=== PATIENT | female | born 1990 ===

== ENCOUNTER 2017-08-21 11:42 | Emergency (ER) | payer MEDICAID ==
[~2017-08-21] VITALS: Ht 167.6 cm; Wt 58.1 kg
[2017-08-21 12:06] VITALS: BP 120/70
[2017-08-21 12:44] LABS: Urine Bacteria NONE SEEN /hpf (None Seen); Urine Blood Negative /uL (Negative); Urine Specific Gravity 1.003 (1.001-1.035); Urine WBC 2 /hpf (0 - 5)
[2017-08-21] MEDS ORDERED: LIDOCAINE VISCOUS 2% 15ML UD PO ONE (13:15)
[2017-08-21] MEDS ORDERED: DONNATAL 5ml ORAL Elix (BELLADONNA ALK-PHENOBARB) PO ONE (13:15)
[2017-08-21] MEDS ORDERED: ALUM & MAG HYDROX-SIMETH LIQ(MAALOX) 30 ML PO ONE (13:15)
[2017-08-21 13:22] LABS: Basophils # (auto) 0.1 uL; Eosinophils # (auto) 0.1 uL; Hemoglobin 12.3 g/dL (12.2-16.2); Mean Corpuscular Hemoglobin 26.6 pg (28.0-32.0); Neutrophils # (auto) 3.2 uL; Platelet Count (auto) 321 10^3/uL (140-450)
[2017-08-21 13:24] LABS: Basophils % (auto) 1.2 % (0.0-2.0); Eosinophils % (auto) 2.2 % (0.0-7.0); Hematocrit 37.7 % (36.0-46.0); Lymphocytes % (auto) 34.8 % (10.0-50.0); Mean Corpuscular Hgb Conc. 32.7 g/dL (32.0-36.0); Mean Corpuscular Volume 81.5 fL (80.0-100.0); Monocytes # (auto) 0.4 uL; Monocytes % (auto) 7.6 % (0.0-12.0); Neutrophils % (auto) 54.2 % (37.0-80.0); Red Blood Cells 4.62 10^6/uL (4.0-5.20); Red Cell Distribution Width 14.1 % (11.8-14.3); White Blood Cell 5.9 10^3/uL (4.4-10.8)
[2017-08-21 13:46] LABS: Albumin 4.8 g/dL (3.4-5.0); BUN/Creatinine Ratio 14.5; Calcium 9.6 mg/dL (8.5-10.1); Potassium 4.3 mmol/L (3.5-5.1)
[2017-08-21 13:48] LABS: Total Protein 8.3 g/dL (6.4-8.2)
== END 2017-08-21 15:25 | disposition home or self-care (01) ==
LOC: ER 11:42
DX: K29.70 Gastritis, unspecified, without bleeding (principal)
CPT/HCPCS: 36415; 74176; 80053; 81001; 81025; 85025

== ENCOUNTER 2019-06-13 11:49 | Inpatient (IN) | payer MEDICAID ==
[~2019-06-13] VITALS: Ht 167.6 cm; Wt 63.0 kg
[2019-06-13] MEDS ORDERED: LACT. RINGERS/OXYTOCIN 20UNITS 1,000 ML IV SCH (12:32)
[2019-06-13] MEDS ORDERED: PHISODERM TOP SOLN 240ML BTL TOP PRN (12:45)
[2019-06-13] MEDS ORDERED: LIDOCAINE 2%HCL (LOCAL ANESTH.) INJ 20ML MDV ID PRN (12:45)
[2019-06-13] MEDS ORDERED: WITCH HAZEL-GLYCERIN PAD TOP PRN (12:45)
[2019-06-13] MEDS ORDERED: NALBUPHINE HCL 10 MG/1ml INJECTION IV PRN (12:45)
[2019-06-13] MEDS ORDERED: DERMOPLAST 60ML BOTTLE TOP PRN (12:45)
[2019-06-13 13:22] LABS: Basophils # (auto) 0 uL; Basophils % (auto) 0.4 % (0.0-2.0); Eosinophils # (auto) 0.1 uL; Hematocrit 40.8 % (36.0-46.0); Hemoglobin 13.7 g/dL (12.2-16.2); Lymphocytes # (auto) 1.5 uL; Lymphocytes % (auto) 18.4 % (10.0-50.0); Mean Corpuscular Hemoglobin 30.1 pg (28.0-32.0); Mean Corpuscular Hgb Conc. 33.7 g/dL (32.0-36.0); Mean Corpuscular Volume 89.3 fL (80.0-100.0); Monocytes # (auto) 0.5 uL; Monocytes % (auto) 5.6 % (0.0-12.0); Neutrophils % (auto) 74.6 % (37.0-80.0); Nucleated Red Blood Cells % 0.1 %; Platelet Count (auto) 170 10^3/uL (140-450); Red Blood Cells 4.57 10^6/uL (4.0-5.20); Red Cell Distribution Width 13.8 % (11.8-14.3)
[2019-06-13 13:30] LABS: Urine Bacteria FEW /hpf (None Seen); Urine Blood Negative /uL (Negative); Urine Mucus FEW (None Seen); Urine Specific Gravity 1.012 (1.001-1.035); Urine WBC 6 /hpf (0 - 5)
[2019-06-13 13:43] LABS: Albumin 3.2 g/dL (3.4-5.0); BUN/Creatinine Ratio 9.6; Potassium 3.6 mmol/L (3.5-5.1); Uric Acid 4.5 mg/dL (2.6-6.0)
[2019-06-13 13:44] LABS: Alcohol, Urine < 3.0 mg/dL (0-5); Amphetamine Screen, Urine NEGATIVE (NEGATIVE); Barbiturate Scree,Urine NEGATIVE (NEGATIVE); Benzodiazephine Screen, Urine NEGATIVE (NEGATIVE); Cannabinoid Screen, Urine NEGATIVE (NEGATIVE); Cocaine Screen, Urine NEGATIVE (NEGATIVE); Opiate Scree,Urine NEGATIVE (NEGATIVE); Phencyclidine Screen, Urine NEGATIVE (NEGATIVE)
[2019-06-13 13:46] LABS: Bilirubin, Total 0.7 mg/dL (0.2-1.0); Total Protein 7.6 g/dL (6.4-8.2)
[2019-06-13 14:27] LABS: INR < 0.93 (0.9-1.15); Partial Thromboplastin Time 26.8 sec (23.64-32.05)
[2019-06-13 14:28] LABS: Fibrinogen 546 mg/dL (177-375)
[2019-06-13] MEDS: LACTATED RINGER'S 1,000 ML IV SCH ×3 (15:10→23:27)
[2019-06-13] MEDS: ACETAMINOPHEN 325 MG TAB PO PRN (16:24)
[2019-06-13] MEDS: NALBUPHINE HCL 10 MG/1ml INJECTION IV PRN (22:55)
[2019-06-13] MEDS: PROMETHAZINE HCL 25 MG/ML 1ML IV PRN (22:55)
[2019-06-14] MEDS ORDERED: LACT. RINGERS/OXYTOCIN 20UNITS 1,000 ML IV SCH ×2 (02:55→07:25)
[2019-06-14] MEDS ORDERED: TERBUTALINE SULFATE 1 MG/ML 1ML VIAL SC ONE (03:00)
[2019-06-14] MEDS ORDERED: PREN-153 OR (03:54)
[2019-06-14 04:06] LABS: RPR Non Reactive (Non Reactive)
[2019-06-14] MEDS: NALBUPHINE HCL 10 MG/1ml INJECTION IV PRN (04:57)
[2019-06-14] MEDS: PROMETHAZINE HCL 25 MG/ML 1ML IV PRN (04:57)
[2019-06-14] MEDS ORDERED: ONDANSETRON HCL 4 MG/2 ML VIAL IV PRN (06:30)
--- NOTE | 2019-06-14 06:30 | NUR ---
Report received from Jeyson Katz RN on demise.
--- NOTE | 2019-06-14 06:35 | NUR ---
[facility] CALLED INFO GIVEN SPOKE TO KAUSHAL AND CASE NUMBER RECEIVED FROM KAUSHAL [id number]
--- NOTE | 2019-06-14 07:30 | NUR ---
Ambulation: Patient OOB with standby assistance by RN. Patient ambulated to bathroom with steady gait. Patient able to void 800 cc without difficulty. Nikkie care teaching provided with returned demonstration by patient. Clean gown provided and bed linen changed. Patient ambulated back to bed with steady gait and no distress noted.
--- NOTE | 2019-06-14 08:30 | NUR ---
SPOKE TO JERI AT [facility]. INFO GIVEN, QUESTIONS AND CONCERNS ANSWERED.
--- NOTE | 2019-06-14 09:33 | NUR ---
RECEIVED CALL FROM [facility] OPERATOR'S SPOKE TO SINA SOLO CASE NUMBER GIVEN [phone], BODY RELEASED TO [facility] OR [facility] PER SINA.
--- NOTE | 2019-06-14 12:20 | NUR ---
MORTUARY AT BEDSIDE. TERESA BROWN FROM MORTUARY HERE TO [employer] OPERATOR [employer] TO TRANSPORT TO MORTUARY. RELEASE OF REMAINS SIGNED BY THE PATIENT. [facility] TRANSPORTED TO MORTUARY.
--- NOTE | 2019-06-14 14:30 | NUR ---
[facility] CALLED STATES SCREENING RESULTS ARE POSITIVE AND THEY NEED TO SEND OUT LAB TO CONFIRM IF SHE NEEDS MORE THAN ONE RHOGAM. DR ALCALA CALLED IN REGARDS POSITIVE SCREENING PER DR ALCALA GIVE PT ONE RHOGAM. ORDERS CARRIED OUT.
[2019-06-14 15:30] VITALS: BP 127/79
[2019-06-14] MEDS: IBUPROFEN 600 MG TAB PO PRN ×3 (15:54→20:30)
--- NOTE | 2019-06-14 18:59 | NUR ---
IV removal IV DC'd with sterile technique, catheter fully intact. Pressure dressing applied to site. Patient tolerated procedure well.
[2019-06-14 19:20] VITALS: BP 98/50
[2019-06-14] MEDS: DOCUSATE SOD 100 MG CAP PO SCH (22:08)
[2019-06-14 22:37] VITALS: BP 101/55
[2019-06-15 03:27] VITALS: BP 110/56
[2019-06-15] MEDS: ACETAMINOPHEN 325 MG TAB PO PRN (05:41)
[2019-06-15 07:25] VITALS: BP 110/67
--- NOTE | 2019-06-15 08:14 | NUR ---
DR. ALCALA AT PT BEDSIDE FOR PT ASSESSMENT. DR. ALCALA NOTIFIED PTS RIGHT EAR HAS BEEN HURTING HER SINCE LAST NIGHT. DR. ALCALA ASSESSED PTS EAR. ORDERS RECEIVED FROM DR. ALCALA TO DISCHARGE PT HOME AND PRESCRIPTION FOR A Z-PACK WAS WRITTEN FOR PATIENT. WILL PREPARE PT FOR DISCHARGE.
--- NOTE | 2019-06-15 08:55 | NUR ---
NEEDLEWORKER PAGED NEEDLEWORKER REGARDING CONSULT. AWAITING CALL BACK.
--- NOTE | 2019-06-15 08:55 | NUR ---
COMSEC MANAGER ANTONELLA PRYOR FROM [employer] MA[employer] CALLED BACK AND STATED PT CLEARED FOR DISCHARGE. Addendum: 06/15/19 at 1212 by Janay Garcia RN [id number] BRI CALLED BACK
[2019-06-15] MEDS: DOCUSATE SOD 100 MG CAP PO SCH (10:21)
[2019-06-15] MEDS: IBUPROFEN 600 MG TAB PO PRN (10:22)
--- NOTE | 2019-06-15 10:28 | NUR ---
Discharge: Discharge instructions given as ordered. Pt encouraged to follow up with PRODUCT SAFETY LEAD as instructed. All questions and concerns addressed. Patient verbalized understanding. Medication reconciliation completed and copy given to patient. Patient encouraged to prepare to depart unit.
--- NOTE | 2019-06-15 10:29 | NUR ---
NOTIFIED DR. ALCALA PT WOULD LIKE TO GO HOME WITH A PRESCRIPTION FOR MOTRIN. ORDERS RECEIVED FROM DR. ALCALA FOR MOTRIN 600MG PO QID WITH MEALS PRN, #60 NO REFILLS. READ BACK AND VERIFIED ORDERS. WILL CARRY OUT.
[2019-06-15 10:30] VITALS: BP 131/75
--- NOTE | 2019-06-15 10:47 | NUR ---
CALLED IN MOTRIN PRESCRIPTION TO [facility] AT [phone], SPOKE WITH PHARMACIST JANET. PT NOTIFIED AND STATED SHE WILL SCHOOL GUARD PRESCRIPTION.
[2019-06-15 11:00] VITALS: BP 128/87
--- NOTE | 2019-06-15 11:15 | NUR ---
Discharge: Patient taken to vehicle ambulatory via steady gait, pt declined wheelchair with all personal belongings, accompanied by this RN and family members. No distress noted at time of departure, no adverse changes in status since initial assessment.
== END 2019-06-15 11:15 | disposition home or self-care (01) | DRG 560 ==
LOC: OB 11:49 → LDRP 12:20
PROVIDERS: ADMIT Specialist; ATTEND Specialist
PROC: 10E0XZZ Delivery of Products of Conception, External Approach (ICD-10-PCS; principal; 2019-06-14)
PROC: 10907ZC Drainage of Amniotic Fluid, Therapeutic from Products of Conception, Via Natural or Artificial Opening (ICD-10-PCS; 2019-06-14)
DX: O36.4XX0 Maternal care for intrauterine death, not applicable or unspecified (principal); Z37.1 Single stillbirth; O69.81X0 Labor and delivery complicated by cord around neck, without compression, not applicable or unspecified; O77.0 Labor and delivery complicated by meconium in amniotic fluid; O99.824 Streptococcus B carrier state complicating childbirth; Z3A.37 37 weeks gestation of pregnancy
CPT/HCPCS: 36415; 59025; 59409; 76815; 80053; 80307; 81001; 81002; 84112; 84550; 85025; 85384; 85610; 85730; 86592; 86850; 86900; 86901; 90384; 96365; 96366; 96375; G0378; J2590